=== PATIENT | male | born 1955 | race Caucasian/White ===

== ENCOUNTER 2019-09-06 10:11 | Inpatient (IN) | payer OTHER ==
[2019-09-03 14:09] VITALS: BMI 28.7
[~2019-09-06 10:11] MED LIST: ceFAZolin 2 GRAM PREMIX BAG IVPB ONE
[2019-09-06] MEDS ORDERED: THROMBIN (BOVINE) 20,000 UNIT VIAL TP ONE (11:25)
[2019-09-06] MEDS ORDERED: GENTAMICIN SO4 80 MG/2 ML VIAL ONE (11:27)
[2019-09-06] MEDS ORDERED: MIDAZOLAM HCL 2 MG/2 ML SINGLE DOSE VIAL ONE (12:03)
[2019-09-06] MEDS ORDERED: ceFAZolin 2 GRAM PREMIX BAG IVPB ONE (13:10)
[2019-09-06] MEDS ORDERED: VANCOMYCIN 1,000 MG VIAL (RESTRICTED TO ID ONLY) IVPB ONE (13:10)
[2019-09-06] MEDS ORDERED: THROMBIN (BOVINE) 5,000 UNIT VIAL TP ONE (13:16)
[2019-09-06] MEDS ORDERED: GENTAMICIN SO4 80 MG/2 ML VIAL IVPB ONE (13:16)
[2019-09-06] MEDS ORDERED: BACITRACIN 50,000 UNITS VIAL NR ONE (13:16)
[2019-09-06] MEDS ORDERED: PROPOFOL 20 ML ONE (14:14)
[2019-09-06] MEDS ORDERED: NEOSTIGMINE METHYLSULFATE 0.5 MG/1 ML - 10 ML MDV ONE (14:14)
[2019-09-06] MEDS ORDERED: LACTATED RINGERS SOLUTION 1,000 ML IV SCH (15:00)
[2019-09-06] MEDS ORDERED: ACETAMINOPHEN INJECTION 100 ML IVPB ONE (15:32)
[2019-09-06] MEDS ORDERED: ACETAMINOPHEN 1000 MG/100 ML VIAL (NON FORMULARY) IVPB ONE ×2 (15:34→15:38)
[2019-09-06] MEDS ORDERED: oxyCODONE HCL 5 MG TABLET PO PRN (15:41)
[2019-09-06] MEDS ORDERED: diphenhydrAMINE HCL 25 MG CAPSULE (FP) PO PRN (15:41)
[2019-09-06] MEDS ORDERED: morphine CARPU-JECT 4 MG/1 ML DISP.SYRIN IVPUSH PRN (15:41)
[2019-09-06] MEDS ORDERED: ONDANSETRON 4 MG/2 ML VIAL IVPUSH PRN (15:41)
[2019-09-06] MEDS ORDERED: morphine CARPU-JECT 2 MG/1 ML DISP.SYRIN IVPUSH PRN (16:02)
[2019-09-06] MEDS ORDERED: fentaNYL CITRATE 250 MCG/5 ML VIAL IVPUSH ONE (16:03)
[2019-09-06] MEDS: LACTATED RINGERS SOLUTION 1,000 ML/1,000 ML INFUS.BAG IV SCH (17:37)
[2019-09-06] MEDS: HEPARIN NA (PORCINE) 5,000 UNITS/ML 1ML VIAL SQ SCH ×2 (17:37→21:30)
[2019-09-06] MEDS ORDERED: DEXTROSE 5%-WATER - 50 ML IVPB ONE (18:00)
[2019-09-06] MEDS ORDERED: CEFAZOLIN 1 GM/D5W 1 GM/50 ML BAG IVPB SCH (18:00)
[2019-09-06] MEDS ORDERED: ceFAZolin SODIUM 1 GM VIAL ONE (18:00)
[2019-09-06] MEDS: CEFAZOLIN 1 GM in DEXTROSE 5%-WATER - 50 ML IVPB SCH (18:02)
[2019-09-06] MEDS ORDERED: MORPHINE SULFATE 2 MG/ML VIAL IVPUSH PRN (19:05)
[2019-09-06] MEDS: oxyCODONE HCL 5 MG TABLET PO PRN (21:30)
[2019-09-06] MEDS: DOCUSATE SODIUM 100 MG CAPSULE (FP) PO SCH (21:30)
[2019-09-06] MEDS: ATORVASTATIN CA 20 MG TABLET (FP) PO SCH (21:30)
[2019-09-06] MEDS ORDERED: ATORVASTATIN CA 10 MG TABLET (FP) PO SCH (22:00)
[2019-09-07] MEDS: MORPHINE SULFATE 2 MG/ML VIAL IVPUSH PRN ×5 (00:10→22:35)
[2019-09-07] MEDS ORDERED: ceFAZolin SODIUM 1 GM VIAL ONE ×3 (01:24→17:03)
[2019-09-07] MEDS ORDERED: DEXTROSE 5%-WATER - 50 ML IVPB ONE ×3 (01:24→17:04)
[2019-09-07] MEDS: CEFAZOLIN 1 GM in DEXTROSE 5%-WATER - 50 ML IVPB SCH ×3 (01:27→17:06)
[2019-09-07] MEDS: oxyCODONE HCL 5 MG TABLET PO PRN ×2 (03:37→13:02)
[2019-09-07] MEDS: HEPARIN NA (PORCINE) 5,000 UNITS/ML 1ML VIAL SQ SCH ×3 (06:02→21:46)
[2019-09-07] MEDS: DOCUSATE SODIUM 100 MG CAPSULE (FP) PO SCH ×2 (06:02→21:46)
[2019-09-07] MEDS: FERROUS SO4 325 MG TABLET (FP) PO SCH (08:00)
[2019-09-07 08:14] LABS: HEMATOCRIT 37.3 % (35.4-49); HEMOGLOBIN 12.4 GM/dL (11.7-16.9); MCH 31.5 pg (25.7-33.7); MCHC 33.3 g/dl (32.0-35.9); MEAN CELL VOLUME 94.5 fl (80-96); MEAN PLT VOLUME 8.7 fl (7.5-11.1); PLATELET COUNT 230 K/MM3 (134-434); RBC 3.95 M/mm3 (4.00-5.60); RDW 13.6 % (11.9-15.9)
[2019-09-07 08:33] LABS: CREATININE 0.8 mg/dL (0.55-1.3); POTASSIUM 4.2 mmol/L (3.5-5.1)
[2019-09-07] MEDS ORDERED: PT OWN MED DRAWER 7, Y5N ONE (09:16)
[2019-09-07] MEDS: FOLIC ACID 1 MG TABLET (FP) PO SCH (09:20)
[2019-09-07] MEDS ORDERED: PATIENT'S OWN MEDICATION (NON-FORMULARY) (Simvastatin [Simvastatin] 40 MG) PO SCH (10:00)
[2019-09-07] MEDS: LACTATED RINGERS SOLUTION 1,000 ML/1,000 ML INFUS.BAG IV SCH (17:06)
[2019-09-07] MEDS: ACETAMINOPHEN 500 MG TABLET (FP) PO PRN (17:36)
[2019-09-07] MEDS: ATORVASTATIN CA 20 MG TABLET (FP) PO SCH (21:46)
[2019-09-07] MEDS ORDERED: BENZOCAINE/MENTH/CETYLPYRD CL 1 EACH LOZENGE MM PRN (22:52)
[2019-09-08] MEDS ORDERED: ACETAMINOPHEN 1000 MG/100 ML VIAL (NON FORMULARY) IVPB ONE (00:09)
[2019-09-08] MEDS ORDERED: DEXTROSE 5%-WATER - 50 ML IVPB ONE ×3 (01:54→17:01)
[2019-09-08] MEDS ORDERED: ceFAZolin SODIUM 1 GM VIAL ONE ×3 (01:54→17:01)
[2019-09-08] MEDS: CEFAZOLIN 1 GM in DEXTROSE 5%-WATER - 50 ML IVPB SCH ×3 (02:02→17:39)
[2019-09-08] MEDS: HEPARIN NA (PORCINE) 5,000 UNITS/ML 1ML VIAL SQ SCH ×3 (05:05→21:13)
[2019-09-08] MEDS: MORPHINE SULFATE 2 MG/ML VIAL IVPUSH PRN ×3 (05:06→21:13)
[2019-09-08] MEDS: oxyCODONE HCL 5 MG TABLET PO PRN ×2 (06:35→16:11)
[2019-09-08] MEDS: ACETAMINOPHEN 500 MG TABLET (FP) PO PRN (08:16)
[2019-09-08] MEDS ORDERED: methylPREDNISolone NA SUCC 40 MG/1 ML VIAL IVPUSH ONE (09:15)
[2019-09-08] MEDS: FERROUS SO4 325 MG TABLET (FP) PO SCH (10:13)
[2019-09-08] MEDS: FOLIC ACID 1 MG TABLET (FP) PO SCH (10:13)
[2019-09-08] MEDS ORDERED: ALPRAZolam 1 MG TABLET PO PRN (11:00)
[2019-09-08] MEDS: LACTATED RINGERS SOLUTION 1,000 ML/1,000 ML INFUS.BAG IV SCH (16:10)
[2019-09-08] MEDS: ATORVASTATIN CA 20 MG TABLET (FP) PO SCH (21:13)
[2019-09-08] MEDS: DOCUSATE SODIUM 100 MG CAPSULE (FP) PO SCH (21:13)
[2019-09-09] MEDS: MORPHINE SULFATE 2 MG/ML VIAL IVPUSH PRN (03:30)
[2019-09-09] MEDS: HEPARIN NA (PORCINE) 5,000 UNITS/ML 1ML VIAL SQ SCH (06:22)
[2019-09-09] MEDS: FERROUS SO4 325 MG TABLET (FP) PO SCH (07:43)
[2019-09-09] MEDS: oxyCODONE HCL 5 MG TABLET PO PRN (07:43)
[2019-09-09] MEDS: FOLIC ACID 1 MG TABLET (FP) PO SCH (10:02)
[2019-09-09 10:30] VITALS: BP 133/80; PULSE 68; TEMP 98.5
== END 2019-09-09 10:45 | disposition home or self-care (01) | DRG 321 ==
LOC: J2C 10:11 → J8W 17:17
PROVIDERS: ADMIT Family Medicine; ATTEND Family Medicine
PROC: 0RB30ZZ Excision of Cervical Vertebral Disc, Open Approach (ICD-10-PCS; 2019-09-06)
PROC: 0RG20A0 Fusion of 2 or more Cervical Vertebral Joints with Interbody Fusion Device, Anterior Approach, Anterior Column, Open Approach (ICD-10-PCS; 2019-09-06)
PROC: 01N10ZZ Release Cervical Nerve, Open Approach (ICD-10-PCS; 2019-09-06)
PROC: B01BZZZ Fluoroscopy of Spinal Cord (ICD-10-PCS; principal; 2019-09-06 12:00)
DX: M47.12 Other spondylosis with myelopathy, cervical region (principal); E78.5 Hyperlipidemia, unspecified; E66.9 Obesity, unspecified; Z68.28 Body mass index [BMI] 28.0-28.9, adult; R13.10 Dysphagia, unspecified
CPT/HCPCS: 36415; 71045-TC-FY; 72125-TC; 76000-TC-FY; 80048; 85027; 86850; 86900; 86901; 94010; 94760; 97116-GP; 97161-GP; J0131; J1644